=== PATIENT | female | born 1960 | race Caucasian/White ===

== ENCOUNTER 2024-05-09 09:27 | Day surgery (SDC) | payer MEDICARE, BC ==
[~2024-05-09 09:27] MED LIST: Sodium Chloride 0.9% 10 ML Syringe FLUSH PRN; Sodium Chloride 0.9% 2.5 ML Syringe FLUSH PRN; Sodium Chloride 0.9% 20 ML SDV IV PRN
[2024-05-09] MEDS: Lactated Ringers 1,000 ML IV SCH (09:47)
[2024-05-09] MEDS ORDERED: propofoL 50 ML ONE (11:22)
== END 2024-05-09 12:45 | disposition home or self-care (01) ==
LOC: MW.SDS 09:27
PROVIDERS: ATTEND Surgery
DX: Z12.11 Encounter for screening for malignant neoplasm of colon (principal); D12.5 Benign neoplasm of sigmoid colon; R19.5 Other fecal abnormalities; E03.9 Hypothyroidism, unspecified; E66.9 Obesity, unspecified; K21.9 Gastro-esophageal reflux disease without esophagitis; Z68.31 Body mass index [BMI] 31.0-31.9, adult; Z91.040 Latex allergy status; Z79.899 Other long term (current) drug therapy; Z79.890 Hormone replacement therapy
CPT/HCPCS: 45380; 45385; J2704; J7120